=== PATIENT | male | born 1995 | race African-American/Black ===

== ENCOUNTER 2022-10-07 19:21 | Emergency (ER) | payer OTHER ==
[~2022-10-07] VITALS: Ht 175.3 cm; Wt 72.7 kg
[2022-10-07 21:25] VITALS: BP 138/83
== END 2022-10-07 21:26 | disposition home or self-care (01) ==
LOC: M ED 19:21
DX: H61.22 Impacted cerumen, left ear (principal)

== ENCOUNTER → 2024-05-26 | Outpatient (REF) | payer OTHER ==
[2024-05-26 20:21] LABS: Trichomonas vaginalis (AMP) NOT DETECTED (NEGATIVE)
[2024-05-26 20:45] LABS: GC DNA AMPLIFICATION NEGATIVE (NEGATIVE)
== END ==
LOC: M WUC 18:48
PROVIDERS: ATTEND Physician Assistant
DX: R30.0 Dysuria (principal)